=== PATIENT | male | born 1960 | race Caucasian/White ===

== ENCOUNTER → 2018-08-22 09:49 | Outpatient (CLI) | payer OTHER, SELFPAY ==
--- NOTE | 2018-08-22 09:52 | DI.RAD.S_ITS ---
PROCEDURE: XR SHOULDER RT MIN 2V INDICATIONS: bilateral shoulder pain TECHNIQUE: 3 views of the shoulder were acquired. COMPARISON: None. FINDINGS: Bones: No fractures or dislocations. No suspicious bony lesions. There is mild acromioclavicular and glenohumeral joint degeneration with mild space narrowing and small osteophytes. Visualized ribs appear intact. Soft tissues: No suspicious soft tissue calcifications. IMPRESSION: Mild degenerative joint disease. Dictated by: Daniela Baird M.D. on 08/22/2018 at 17:41 Approved by: Daniela Baird M.D. on 08/22/2018 at 17:43
--- NOTE | 2018-08-22 09:52 | DI.RAD.S_ITS ---
PROCEDURE: XR SHOULDER LT MIN 2V INDICATIONS: bilateral shoulder pain TECHNIQUE: 3 views of the shoulder were acquired. COMPARISON: [facility], X-ray, left shoulder, 08/15/2002.. FINDINGS: Bones: No fractures or dislocations. No suspicious bony lesions. Mild acromioclavicular and glenohumeral joint degeneration is present with was present and small osteophytes. Visualized ribs appear intact. Soft tissues: No suspicious soft tissue calcifications. IMPRESSION: Mild degenerative joint disease. Dictated by: Daniela Baird M.D. on 08/22/2018 at 17:37 Approved by: Daniela Baird M.D. on 08/22/2018 at 17:38
== END ==
PROVIDERS: PCP Family Medicine; Visit Provider Nurse Practitioner Family
DX: M25.511 Pain in right shoulder (principal); M25.512 Pain in left shoulder; M19.012 Primary osteoarthritis, left shoulder; M19.011 Primary osteoarthritis, right shoulder
CPT/HCPCS: 73030

== ENCOUNTER 2018-10-05 08:46 | Day surgery (SDC) | payer OTHER, SELFPAY ==
[2018-10-05 09:15] VITALS: BP 145/88; PULSE 78; RESP 15; TEMP 36; O2SAT 100; BMI 23.0
--- NOTE | 2018-10-05 11:11 | PM.HP.1 ---
History of Present Illness Date Patient Seen: 10/05/18 Chief complaint: [id number] SCREENING COLONOSCOPY Narrative: 58 y/o male here for colon cancer screening colonoscopy. last colonoscopy 7 years ago, benign polyp removed done at facility near [place], [place]. Recommended repeat colonoscpy in 5yrs. No complaints of abdominal pain, bloating, chronic constipation, change in caliber of stools, melena, blood per rectum. Patient History Medical History Actinic keratoses (Chronic) Hypertension (Chronic 2013) BCC (basal cell carcinoma) (Resolved 2015) SCC (squamous cell carcinoma) (Resolved) Skin cancer (Resolved) Surgical History Anesthesia (Resolved) History of tooth extraction (Resolved) Status post Mohs micrographic surgery for basal cell carcinoma (BCC) (Resolved 04/2016) Family & Social History Family History: Reviewed 10/05/18 by Jaime Anaya MD Social History: household members spouse Tobacco & Substance use: Smoking Status Never smoker Meds Home Medications Medication Instructions Recorded Confirmed Type aspirin 81 mg PO DAILY #0 08/30/16 10/05/18 History multivitamin tablet 1 tab PO DAILY 08/22/18 10/05/18 History glucosamine-chondroitin [Osteo 2 tab PO DAILY 10/05/18 10/05/18 History Bi-Flex] Allergies Allergy/AdvReac Type Severity Reaction Status Date / Time No Known Drug Allergies Allergy Verified 10/05/18 09:01 Review of Systems Review of Systems All systems reviewed & are unremarkable except as noted in HPI and below Exam Vital Signs (past 8 hours): - 10/05/18 09:15 Temperature 96.8 F L Pulse Rate 78 Respiratory Rate 15 Blood Pressure 145/88 H Pulse Oximetry 100 Oxygen Delivery Method Room Air Const General: cooperative, healthy appearing and comfortable Eyes Sclera: sclerae normal Neck Neck: supple Chest Chest: normal inspection of the chest Resp Effort & Inspection: normal respiratory effort Cardio Rate: regular rate Rhythm: regular rhythm GI Inspection: normal to inspection Palpation: soft Skin General: no rashes or lesions noted Neuro General: alert, awake and moves all extremities Extrem General: normal to inspection Psych Mental Status: mental status grossly normal Mood: congruent mood Affect: normal affect Attitude: cooperative Thought Process: normal Thought Content: normal Judgment: judgment good Assessment & Plan Plan: Assessment/Plan Narrative: Colon cancer screening colonoscopy. hx of polyp. procedure, benefits, risks including bleeding and perforation reviewed with patient. Time Spent With Patient Time with patient: 25 - 35 minutes
[2018-10-05] MEDS: diphenhydrAMINE 50 MG/ML VIAL IV (11:19)
[2018-10-05] MEDS: SODIUM CHLORIDE 0.9% 1,000 ML 125 ML IV (11:25)
[2018-10-05 11:50] VITALS: BP 130/87; PULSE 79; RESP 12; TEMP 36.6; O2SAT 100
[2018-10-05] MEDS: MIDAZOLAM 5 MG/5 ML VIAL IV (11:52)
[2018-10-05] MEDS: fentaNYL 250 MCG/5 ML INJ IV (11:53)
[2018-10-05 11:55] VITALS: BP 134/86; PULSE 69; RESP 13; O2SAT 99
[2018-10-05 12:00] VITALS: BP 130/85; PULSE 66; RESP 14; TEMP 36.6; O2SAT 100
--- NOTE | 2018-10-05 12:04 | PM.OP.ENDO ---
Operative Date/Time/Diagnoses Date of procedure: 10/05/18 Pre-op diagnosis: history of colon polyp colon cancer screening Post-op diagnosis: same Procedure & Clinicians Study performed: colonoscopy Same procedure as scheduled: Yes Surgeon: Jaime Anaya Procedure Notes SCOAP/Timeout: done Procedure in detail: Versed IV 13mg Fentanyl IV 200 mcg Patient taken from preoperative area to endoscopy suite with adequate iv access on guerny. Timeout was performed. IV sedation sedation was titrated throughout the case while patient was continuously monitored. Inspection of anal orifice revealed few scattered skin tags. Digital exam failed to palpate any lesions. A well lubricated The [employer] colonoscope was gently introduced through the anus and advanced to the cecum using the dither-torque technique. Unable to advance past hepatic flexure due to patient discomfort, despite incremental dosing of sedation. Anesthesia not available for deep sedation. The mucosa of the colon was evaluated during the withdrawl of colonoscope. Residual insufflation was evacuated. Patient tolerated procedure well and was transferred to PACU in stable condition. Patient to be rescheduled for colonoscopy with anesthesia for deep sedation. Sedation minutes: 32 Specimen(s): none sent Complications: none Recommendations: Other recommendation (reschedule colonoscopy with anesthesia for deep sedation) Disposition: same day surgery
--- NOTE | 2018-10-05 15:17 | SUR.PHASEII ---
Late Note: Dr Anaya came to bedside to explain not completing Colonoscopy. With at bedside process to reschedule and med awareness with large amount of Versed rec'd reviewed. Patient has drowsy affect but is quite appropriate to all interactions on discharge.
== END 2018-10-05 12:40 | disposition home or self-care (01) ==
PROVIDERS: PCP Family Medicine; Visit Provider Surgery
PROC: 0DJD8ZZ Inspection of Lower Intestinal Tract, Via Natural or Artificial Opening Endoscopic (ICD-10-PCS; CPT 45378; principal; 2018-10-05 09:45)
DX: Z86.010 Personal history of colon polyps (principal); I10 Essential (primary) hypertension
CPT/HCPCS: 45378; J1200; J2250; J3010

== ENCOUNTER → 2020-08-26 16:46 | Outpatient (CLI) | payer OTHER, SELFPAY ==
[2020-08-26 17:09] LABS: Bacteria Urine None Seen
[2020-08-26 17:33] LABS: Add Manual Diff / Slide Review NO; Basophils Absolute Auto 100 /uL (0-100); Basophils Percent Auto 0.8 % (0-2); Eosinophils Absolute Auto 300 /uL (0-450); Eosinophils Percent Auto 4.1 % (2-4); Hematocrit 35.2 % (41-53); Hemoglobin 11.7 g/dL (13.5-17.5); Lymphocytes Absolute Auto 1900 /uL (1100-4500); Lymphocytes Percent Auto 24.5 % (25-40); Mean Corpuscular HGB Conc 33.1 % (30-36); Mean Corpuscular Hemoglobin 30.5 PG (26-34); Mean Corpuscular Volume 92.3 fL (80-100); Monocytes Absolute Auto 600 /uL (0-900); Monocytes Percent Auto 7.5 % (3-14); Neutrophils Absolute Auto 5000 /uL (1500-7000); Neutrophils Percent Auto 63.1 % (50-75); Platelet Count 254 X10^3/uL (150-400); Red Blood Cell Count 3.82 X10^6/uL (4.5-5.9); Red Cell Distribution Width 13.3 % (11.6-14.8); White Blood Cell Count 7.9 X10^3/uL (4.5-11.0)
[2020-08-26 17:52] LABS: Alanine Aminotransferase 15 IU/L (<50); Albumin 3.8 g/dL (3.5-5.0); Albumin Globulin Ratio 1.4 (1.0-2.8); Alkaline Phosphatase 76 U/L (38-126); Aspartate Aminotransferase 20 IU/L (17-59); BUN Creatinine Ratio 15.2 (6-22); Bilirubin Total 0.5 mg/dL (0.2-1.3); Blood Urea Nitrogen 15 mg/dL (9-20); Calcium 9.2 mg/dL (8.4-10.2); Carbon Dioxide 28 mmol/L (22-32); Chloride 109 mmol/L (98-107); Cholesterol 165 mg/dL (140-199); Estimated Glomerular Filt Rate > 60.0 mL/min (>60); Globulin 2.8 g/dL (1.7-4.1); Glucose 107 mg/dL (80-110); HDL Cholesterol 54 mg/dL (40-60); LDL Cholesterol Calculated 67 mg/dL (<100); Sodium 142 mmol/L (137-145); Total Protein 6.6 g/dL (6.3-8.2); Triglycerides 221 mg/dL (35-150)
[2020-08-26 17:53] LABS: HEMOLYSIS < 15 (0-50)
[2020-08-26 18:22] LABS: Appearance Urine UA CLEAR; Bilirubin Urine UA NEGATIVE (NEGATIVE); Color Urine UA YELLOW; Glucose Urine UA NEGATIVE (Negative); Ketones Urine UA NEGATIVE (NEGATIVE); Leukocyte Esterase Urine UA NEGATIVE (NEGATIVE); Nitrite Urine UA NEGATIVE (Negative); Occult Blood Urine UA TRACE-LYSED (Negative); Protein Urine UA NEGATIVE (Negative); Urobilinogen Urine UA 0.2 E.U./dL (0.2); pH Urine UA 5.5 (4.5-8.0)
[2020-08-26 18:46] LABS: Culture Indicated Urine Cult Not Indicated; RBC Urine 0-1/HPF (0-5/HPF); Squamous Epithelial Cell Urine 0-1 /HPF (0-5/HPF); WBC Urine 0-1/HPF (0-5/HPF)
[2020-08-28 18:41] LABS: Prostate Specific Antigen Scrn 2.39 ng/mL (0.1-4.0)
== END ==
PROVIDERS: PCP Family Medicine; Referring Provider Family Medicine; Visit Provider Family Medicine
DX: R35.1 Nocturia (principal); Z13.220 Encounter for screening for lipoid disorders; Z13.6 Encounter for screening for cardiovascular disorders; R39.15 Urgency of urination
CPT/HCPCS: 36415; 80053; 80061; 81001; 85025; G0103

== ENCOUNTER → 2020-09-16 11:43 | Outpatient (CLI) | payer OTHER, SELFPAY ==
[2020-09-16 12:11] LABS: Add Manual Diff / Slide Review NO; Basophils Absolute Auto 100 /uL (0-100); Basophils Percent Auto 0.9 % (0-2); Eosinophils Absolute Auto 200 /uL (0-450); Eosinophils Percent Auto 2.8 % (2-4); Hematocrit 37.3 % (41-53); Hemoglobin 12.2 g/dL (13.5-17.5); Lymphocytes Absolute Auto 1600 /uL (1100-4500); Lymphocytes Percent Auto 26.6 % (25-40); Mean Corpuscular HGB Conc 32.7 % (30-36); Mean Corpuscular Hemoglobin 30.1 PG (26-34); Mean Corpuscular Volume 92.1 fL (80-100); Monocytes Absolute Auto 500 /uL (0-900); Monocytes Percent Auto 8.6 % (3-14); Neutrophils Absolute Auto 3800 /uL (1500-7000); Neutrophils Percent Auto 61.1 % (50-75); Platelet Count 249 X10^3/uL (150-400); Red Blood Cell Count 4.05 X10^6/uL (4.5-5.9); Red Cell Distribution Width 13.2 % (11.6-14.8); White Blood Cell Count 6.1 X10^3/uL (4.5-11.0)
[2020-09-16 13:34] LABS: Ferritin 34 ng/mL (18-464)
[2020-09-16 15:32] LABS: HEMOLYSIS < 15 (0-50); Iron 96 ug/dL (49-181)
[2020-09-16 15:47] LABS: Percent Iron Saturation 26 % (20-50); Total Iron Binding Capacity 364 ug/dL (261-462); Transferrin 278 mg/dL (206-381)
== END ==
PROVIDERS: PCP Family Medicine; Referring Provider Family Medicine; Visit Provider Family Medicine
DX: D64.9 Anemia, unspecified (principal)
CPT/HCPCS: 36415; 82728; 83540; 83550; 85025

== ENCOUNTER → 2022-05-11 08:36 | Outpatient (CLI) | payer OTHER, SELFPAY ==
[2022-05-12 08:52] LABS: Fecal Immunochemical Test Negative (Negative)
== END ==
PROVIDERS: PCP Family Medicine; Referring Provider Family Medicine; Visit Provider Family Medicine
DX: Z12.11 Encounter for screening for malignant neoplasm of colon (principal); D12.6 Benign neoplasm of colon, unspecified
CPT/HCPCS: 82274

== ENCOUNTER → 2022-08-17 10:21 | Outpatient (CLI) | payer OTHER, SELFPAY ==
--- NOTE | 2022-08-17 10:23 | DI.RAD.S_ITS ---
PROCEDURE: XR CHEST 2V INDICATIONS: unexplained weight loss, Shortness of breath TECHNIQUE: 2 views of the chest were acquired. COMPARISON: None. FINDINGS: Surgical changes and devices: None. Lungs and pleura: No dense consolidation. Perihilar and peribronchial mild opacities. No pleural effusions. Mediastinum: Mediastinal contours are normal. Heart size is normal. Bones and chest wall: No suspicious bony abnormalities. Soft tissues appear unremarkable. IMPRESSION: Mild perihilar and peribronchial opacities could represent bronchitis or atypical infection. Otherwise no acute radiographic abnormality. Consider imaging surveillance to monitor if needed. Dictated by: Alberto Lancaster M.D. on 08/17/2022 at 11:35 Approved by: Alberto Lancaster M.D. on 08/17/2022 at 11:36
[2022-08-17 12:30] LABS: Add Manual Diff / Slide Review NO; Basophils Absolute Auto 0 /uL (0-100); Basophils Percent Auto 0.7 % (0-2); Eosinophils Absolute Auto 100 /uL (0-450); Hematocrit 39.1 % (41-53); Hemoglobin 13.4 g/dL (13.5-17.5); Lymphocytes Absolute Auto 1200 /uL (1100-4500); Lymphocytes Percent Auto 21.3 % (25-40); Mean Corpuscular HGB Conc 34.2 % (30-36); Mean Corpuscular Hemoglobin 30.8 PG (26-34); Monocytes Absolute Auto 400 /uL (0-900); Monocytes Percent Auto 7.7 % (3-14); Neutrophils Absolute Auto 4000 /uL (1500-7000); Neutrophils Percent Auto 68.3 % (50-75); Platelet Count 267 X10^3/uL (150-400); Red Blood Cell Count 4.34 X10^6/uL (4.5-5.9); Red Cell Distribution Width 14.3 % (11.6-14.8); White Blood Cell Count 5.8 X10^3/uL (4.5-11.0)
[2022-08-17 13:28] LABS: Alanine Aminotransferase 21 IU/L (<50); Albumin 4.5 g/dL (3.5-5.0); Albumin Globulin Ratio 1.4 (1.0-2.8); Alkaline Phosphatase 82 U/L (38-126); Aspartate Aminotransferase 28 IU/L (17-59); BUN Creatinine Ratio 14.6 (6-22); Bilirubin Total 0.9 mg/dL (0.2-1.3); Blood Urea Nitrogen 13 mg/dL (9-20); C-Reactive Protein Quant < 0.5 mg/dL (<1.0); Calcium 9.6 mg/dL (8.4-10.2); Carbon Dioxide 24 mmol/L (22-32); Chloride 105 mmol/L (98-107); Estimated Glomerular Filt Rate > 60 mL/min (>60); Globulin 3.2 g/dL (1.7-4.1); Glucose 95 mg/dL (80-110); HEMOLYSIS < 15 (0-50); Potassium 4.4 mmol/L (3.4-5.1); Sodium 140 mmol/L (137-145); Total Protein 7.7 g/dL (6.3-8.2)
[2022-08-17 13:54] LABS: Prostate Specific Antigen Scrn 4.17 ng/mL (0.1-4.0)
[2022-08-17 13:56] LABS: TSH w/ Reflex to FT4 0.91 uIU/mL (0.47-4.68)
== END ==
PROVIDERS: PCP Family Medicine; Referring Provider Family Medicine; Visit Provider Family Medicine
DX: Z12.5 Encounter for screening for malignant neoplasm of prostate (principal); R63.4 Abnormal weight loss
CPT/HCPCS: 36415; 71046; 80053; 84443; 85025; 86140; G0103

== ENCOUNTER → 2022-09-06 13:08 | Outpatient (CLI) | payer OTHER, SELFPAY ==
--- NOTE | 2022-09-06 13:08 | DI.CT.S_ITS ---
PROCEDURE: CT ABDOMEN PELVIS W CON INDICATIONS: Weight loss, bowel changes, abdominal pain TECHNIQUE: After the administration of oral and IV contrast, axial sections were acquired from the lung bases to the pubic symphysis. Coronal and sagittal reformats were performed. For radiation dose reduction, the following was used: automated exposure control, adjustment of mA and/or kV according to patient size. COMPARISON: None. FINDINGS: Image quality: Excellent. Lung bases: Unremarkable. Heart: No significant findings. ABDOMEN: Liver: Unremarkable. Gallbladder: Unremarkable. Biliary ducts: Unremarkable. Pancreas: Unremarkable. Spleen: Unremarkable. Adrenal Glands: Unremarkable. Kidneys and Ureters: Unremarkable. Stomach and Bowel: Stomach, small bowel loops, and colon are normal in caliber. There is thickening of cecum, ascending colon and proximal transverse colon. There are a few colonic diverticula. No acute diverticulitis. Peritoneum: No abnormal intraperitoneal fluid. No free air. Ventral Wall: No hernia. Abdominal Nodes: No retroperitoneal or mesenteric adenopathy by size criteria. Vessels: Aorta and inferior vena cava are normal in size. PELVIS: Pelvic Organs: Prostate is enlarged. Bladder: Unremarkable. Pelvic Nodes: No enlarged lymph nodes. Miscellaneous: No inguinal hernias are seen. Bones: Unremarkable. IMPRESSION: 1. Thickening of cecum, ascending and transverse colon, consistent with colitis. Etiology may be inflammatory bowel disease or infection. Ischemia or neoplastic are felt less likely. Nevertheless, after adequate treatment, please consider colonoscopy. 2. Diverticulosis without diverticulitis. 3. Enlarged prostate. Dictated by: Daniela Baird M.D. on 09/06/2022 at 16:24 Approved by: Daniela Baird M.D. on 09/06/2022 at 17:01
== END ==
PROVIDERS: PCP Family Medicine; Referring Provider Family Medicine; Visit Provider Family Medicine
DX: K57.90 Diverticulosis of intestine, part unspecified, without perforation or abscess without bleeding (principal); R63.4 Abnormal weight loss; N40.0 Benign prostatic hyperplasia without lower urinary tract symptoms; R19.8 Other specified symptoms and signs involving the digestive system and abdomen
CPT/HCPCS: 74177; Q9967

== ENCOUNTER → 2022-12-08 08:02 | Outpatient (CLI) | payer OTHER, SELFPAY ==
[2022-12-11 07:35] LABS: PSA Free % 7.7 % (.); PSA, Total 2.2 ng/mL (0.0-4.0)
== END ==
PROVIDERS: PCP Family Medicine; Referring Provider Family Medicine; Visit Provider Family Medicine
DX: R97.20 Elevated prostate specific antigen [PSA] (principal)
CPT/HCPCS: 36415; 84153; 84154

== ENCOUNTER → 2024-03-23 14:30 | Outpatient (CLI) | payer MEDICARE, SELFPAY ==
--- NOTE | 2024-03-23 14:31 | DI.US.S_ITS ---
PROCEDURE: US EXTREMITY NONVASC LOWER RT INDICATIONS: RIGHT FOOT LUMP TECHNIQUE: Real-time scanning was performed of the right foot, with image documentation. COMPARISON: None. FINDINGS: Ultrasound examination over dorsal right foot at patient's reported area of palpable lump shows a well-circumscribed hypoechoic structure within subcutaneous soft tissue measures 3.9 x 1.2 x 1.8 cm in size and show through acoustic enhancement. No internal vascularity is seen. Low level internal echo is noted. IMPRESSION: Complex cystic structure involving soft tissue over dorsal aspect of right foot measures 3.9 x 1.2 x 1.8 cm in size and may represent a ganglion cyst. Dictated by: Chuy Jimenez M.D. on 03/23/2024 at 16:01 Approved by: Chuy Jimenez M.D. on 03/23/2024 at 16:07
== END ==
LOC: US 14:31
PROVIDERS: PCP Family Medicine; Referring Provider Family Medicine; Visit Provider Family Medicine
DX: D49.2 Neoplasm of unspecified behavior of bone, soft tissue, and skin (principal)
CPT/HCPCS: 76882

== ENCOUNTER → 2024-12-05 10:29 | Outpatient (CLI) | payer MEDICARE, SELFPAY ==
[2024-12-05 12:53] LABS: Alanine Aminotransferase 18 IU/L (<50); Albumin 4.5 g/dL (3.5-5.0); Albumin Globulin Ratio 1.6 (1.0-2.8); Alkaline Phosphatase 71 U/L (38-126); Aspartate Aminotransferase 22 IU/L (17-59); BUN Creatinine Ratio 14.4 (6-22); Bilirubin Total 0.8 mg/dL (0.2-1.3); Blood Urea Nitrogen 15 mg/dL (9-20); Calcium 9.5 mg/dL (8.4-10.2); Carbon Dioxide 25 mmol/L (22-32); Chloride 108 mmol/L (98-107); Cholesterol 243 mg/dL (140-199); Estimated Glomerular Filt Rate > 60 mL/min (>60); Globulin 2.8 g/dL (1.7-4.1); Glucose 91 mg/dL (80-110); HDL Cholesterol 54 mg/dL (40-60); HEMOLYSIS < 15 (0-50); LDL Cholesterol Calculated 171 mg/dL (<100); Sodium 141 mmol/L (137-145); Total Protein 7.3 g/dL (6.3-8.2); Triglycerides 89 mg/dL (35-150)
== END ==
PROVIDERS: PCP Family Medicine; Referring Provider Family Medicine; Visit Provider Family Medicine
DX: I10 Essential (primary) hypertension (principal); Z00.00 Encounter for general adult medical examination without abnormal findings; N40.0 Benign prostatic hyperplasia without lower urinary tract symptoms
CPT/HCPCS: 36415; 80053; 80061

== ENCOUNTER → 2025-04-08 10:00 | Outpatient (CLI) | payer MEDICARE, SELFPAY ==
[2025-04-08 11:41] LABS: Alanine Aminotransferase 18 IU/L (<50); Albumin 4.3 g/dL (3.5-5.0); Albumin Globulin Ratio 1.5 (1.0-2.8); Alkaline Phosphatase 84 U/L (38-126); Aspartate Aminotransferase 22 IU/L (17-59); BUN Creatinine Ratio 16.8 (6-22); Blood Urea Nitrogen 20 mg/dL (9-20); Calcium 9.5 mg/dL (8.4-10.2); Carbon Dioxide 21 mmol/L (22-32); Chloride 107 mmol/L (98-107); Cholesterol 154 mg/dL (140-199); Estimated Glomerular Filt Rate > 60 mL/min (>60); Globulin 2.8 g/dL (1.7-4.1); Glucose 91 mg/dL (70-99); HDL Cholesterol 66 mg/dL (40-60); HEMOLYSIS < 15 (0-50); LDL Cholesterol Calculated 80 mg/dL (<100); Potassium 5.2 mmol/L (3.4-5.1); Sodium 139 mmol/L (137-145); Total Protein 7.1 g/dL (6.3-8.2); Triglycerides 39 mg/dL (35-150)
== END ==
LOC: LAB 10:05
PROVIDERS: PCP Family Medicine; Referring Provider Family Medicine; Visit Provider Family Medicine
DX: E78.00 Pure hypercholesterolemia, unspecified (principal); I10 Essential (primary) hypertension
CPT/HCPCS: 36415; 80053; 80061